=== PATIENT | female | born 1940 | race Caucasian/White ===

== ENCOUNTER 2022-04-02 12:13 | Day surgery (SDC) | payer MEDICARE ==
[~2022-04-02] VITALS: Ht 160 cm; Wt 76.7 kg
[~2022-04-02 12:13] MED LIST: AMIO200T62 PO; FURO-150 PO; METO-539 PO; POTA-82 PO; SPIR25TA5 PO; WARF-65 PO
[2022-04-02] MEDS ORDERED: LORazepam 0.5 MG tablet PO PRN (12:40)
[2022-04-02] MEDS ORDERED: normal saline 1,000 ML IV SCH (12:40)
[2022-04-02] MEDS ORDERED: CARV6.2553 PO (12:51)
[2022-04-02] MEDS ORDERED: AMIO200T61 PO (12:51)
[2022-04-02] MEDS ORDERED: WARF3TAB56 PO (12:51)
[2022-04-02] MEDS ORDERED: LISI5TAB22 PO (12:51)
[2022-04-02] MEDS ORDERED: midazolam 1 mg/ML 2ml injection ONE (15:25)
[2022-04-02] MEDS ORDERED: fentaNYL/PF 50MCG/1 ML 2ML syringe ONE (15:25)
[2022-04-02] MEDS ORDERED: iohexol 350 MG/ML 50ML vial IV ONE (15:25)
[2022-04-02] MEDS ORDERED: LIDOcaine 1% 30ml preserv. free vial ONE (15:26)
[2022-04-02 17:19] VITALS: BP 109/65
[2022-04-02 17:30] VITALS: BP 120/68
[2022-04-02] MEDS ORDERED: HYDROcodone/acetaminophen 5mg/325mg tablet PO PRN (17:30)
[2022-04-02] MEDS ORDERED: HYDROcodone/acetaminophen 10/325mg tab PO PRN (17:30)
[2022-04-02 17:45] VITALS: BP 119/71
[2022-04-02 18:00] VITALS: BP 116/73
[2022-04-02 18:15] VITALS: BP 118/57
[2022-04-02 19:00] VITALS: BP 126/68
[2022-04-03 06:36] LABS: ISTAT Hct MIX 35 %PCV (35-45); ISTAT O2 SATURATION MIX VENOUS 62 % (60-80); ISTAT SOURCE VEN
== END 2022-04-02 19:30 | disposition home or self-care (01) ==
LOC: SSTAY O 12:13
PROVIDERS: ATTEND Internal Medicine Interventional Cardiology
DX: I11.0 Hypertensive heart disease with heart failure (principal); I50.22 Chronic systolic (congestive) heart failure; I48.91 Unspecified atrial fibrillation; Z79.01 Long term (current) use of anticoagulants; Z88.8 Allergy status to other drugs, medicaments and biological substances; Z95.810 Presence of automatic (implantable) cardiac defibrillator
CPT/HCPCS: 33289; 76937; 82803; 85014; 93005; 99152; 99153; C1751; C1769; C1894; C2624; J1644; J2250; J3010; J3490; J7030; Q9967; A6258; A6449